=== PATIENT | female | born 1995 | race Caucasian/White ===

== ENCOUNTER 2017-06-08 21:37 | Emergency (ER) | payer OTHER ==
[~2017-06-08] VITALS: Ht 152.4 cm; Wt 104.5 kg
[~2017-06-08 21:37] MED LIST: ADDERALL20 MG PO; BUSPAR; BUSPAR10 MG PO; DESYREL DIVIDO150 M1 PO; IBU600 MG PO; NO HOME MEDICATIONS; PROZAC40 MG PO
[2017-06-08 21:39] VITALS: BP 161/85; PULSE 105; TEMP 97.5
[2017-06-08] MEDS ORDERED: ADDERALL20 MG PO (21:43)
[2017-06-08] MEDS ORDERED: PROZAC40 MG PO (21:44)
[2017-06-08] MEDS ORDERED: BUSPAR10 MG PO (21:44)
[2017-06-08] MEDS ORDERED: DESYREL 100MG100 MG PO (21:44)
== END 2017-06-08 22:18 | disposition home or self-care (01) ==
LOC: COL.ER 21:37
DX: H69.82 Other specified disorders of Eustachian tube, left ear (principal)